=== PATIENT | female | born 1945 | race African-American/Black ===

== ENCOUNTER 2017-08-04 18:25 | Emergency (ER) | payer MEDICARE, OTHER ==
[~2017-08-04] VITALS: Ht 165.1 cm; Wt 93.0 kg
[2017-08-04] MEDS ORDERED: KETOROLAC 30MG/ML VIAL IV STA (18:59)
[2017-08-04] MEDS ORDERED: MORPHINE SULFATE 4 MG/ML CPJ (NOT FOR IM USE) IV STA (18:59)
[2017-08-04] MEDS ORDERED: ONDANSETRON HCL 4MG/2ML VIAL IV STA (18:59)
[2017-08-04] MEDS ORDERED: ONDANSETRON HCL 4MG/2ML VIAL IV ONE (19:00)
[2017-08-04] MEDS ORDERED: KETAMINE HCL 50 MG/ML 10ML IV ONE (19:00)
[2017-08-04] MEDS ORDERED: FENTANYL CITRATE/PF 50MCG/ML 2ML VIAL IV ONE (19:00)
[2017-08-04] MEDS ORDERED: PROPOFOL 200MG/20ML VIAL IV PRN (19:00)
[2017-08-04] MEDS ORDERED: MIDAZOLAM HCL 2 MG/2 ML VIAL IV ONE (19:00)
[2017-08-04 20:27] VITALS: BP 117/74
== END 2017-08-04 20:58 | disposition home or self-care (01) ==
LOC: ER 19:20
DX: S43.004A Unspecified dislocation of right shoulder joint, initial encounter (principal); I10 Essential (primary) hypertension; E11.9 Type 2 diabetes mellitus without complications; W01.0XXA Fall on same level from slipping, tripping and stumbling without subsequent striking against object, initial encounter; Y93.89 Activity, other specified; Y99.8 Other external cause status; Y92.89 Other specified places as the place of occurrence of the external cause
CPT/HCPCS: 23650; 73030; 96374; 96375; 99152; 99285; J2250; J2270; J2405; J3010; J3490; J1885; J2704

== ENCOUNTER → 2018-02-06 | Outpatient (CLI) | payer MEDICARE ==
[~2018-02-06] MED LIST: REGADENOSON 0.4 MG/5 ML IV ONE
== END | disposition home or self-care (01) ==
LOC: RAD 08:11
PROVIDERS: ATTEND Internal Medicine Geriatric Medicine
DX: I10 Essential (primary) hypertension (principal); R94.31 Abnormal electrocardiogram [ECG] [EKG]; R06.00 Dyspnea, unspecified; E11.9 Type 2 diabetes mellitus without complications
CPT/HCPCS: 78452; 93017; A9500; J2785

== ENCOUNTER 2020-12-01 07:22 | Day surgery (SDC) | payer MEDICARE ==
[~2020-12-01] VITALS: Ht 154.9 cm; Wt 92.1 kg
[~2020-12-01 07:22] MED LIST changes: +AMLO10TA80 PO; +ATEN1TAB42 PO; +METF-873 PO; -REGADENOSON 0.4 MG/5 ML IV ONE
[2020-12-01] MEDS ORDERED: PREDNISOLONE ACETATE 1% OPHTH DROPS 5ML ONE (08:11)
[2020-12-01] MEDS ORDERED: NEO/POLYMYX B SULF/DEXAMETH OPHTH OINT 3.5GM ONE (08:11)
[2020-12-01] MEDS ORDERED: CIPROFLOXACIN 0.3% OPHTH SOLN 2.5ML ONE (08:11)
[2020-12-01] MEDS ORDERED: TETRACAINE 0.5% OPHTH DROPS 4ML ONE (08:11)
[2020-12-01] MEDS ORDERED: LIDOCAINE HCL/PF 2% 20 MG/ML 10ML VIAL ONE (08:11)
[2020-12-01] MEDS ORDERED: BALANCED SALT IRRIG SOLN 15ML ONE (08:11)
[2020-12-01] MEDS ORDERED: LIDOCAINE HCL 2%/EPINEPHRINE 1:100,000 20 ML VIAL INFIL ONE (08:11)
[2020-12-01] MEDS ORDERED: BUPIVACAINE HCL/PF 0.75% (7.5MG/ML) 10ML ONE (08:11)
[2020-12-01] MEDS ORDERED: SODIUM CHLORIDE 0.9% 1,000 ML IV SCH (08:42)
[2020-12-01] MEDS ORDERED: ASPI-1497 PO (08:44)
[2020-12-01] MEDS ORDERED: ALBU18HF2 PO (09:26)
[2020-12-01] MEDS ORDERED: MIDAZOLAM HCL 2 MG/2 ML VIAL ONE (09:50)
[2020-12-01] MEDS ORDERED: FENTANYL CITRATE/PF 50MCG/ML 2ML VIAL ONE (09:50)
[2020-12-01] MEDS ORDERED: PROPOFOL 200MG/20ML VIAL IV ONE (09:50)
[2020-12-01] MEDS ORDERED: LIDOCAINE HCL/PF 1% 10 MG/ML 5ML VIAL ONE (09:51)
[2020-12-01] MEDS ORDERED: KETOROLAC 30MG/ML VIAL ONE (10:27)
== END 2020-12-01 12:25 | disposition home or self-care (01) ==
LOC: OR 07:22
PROVIDERS: ATTEND Ophthalmology
DX: H04.131 Lacrimal cyst, right lacrimal gland (principal); I10 Essential (primary) hypertension; E11.9 Type 2 diabetes mellitus without complications; J45.909 Unspecified asthma, uncomplicated; Z79.899 Other long term (current) drug therapy; Z79.84 Long term (current) use of oral hypoglycemic drugs; Z98.890 Other specified postprocedural states; Z88.5 Allergy status to narcotic agent; Z88.8 Allergy status to other drugs, medicaments and biological substances
CPT/HCPCS: 68540; 82962; 88304; J1885; J2250; J2704; J3010; J3490